=== PATIENT | female | born 1980 | race African-American/Black ===

== ENCOUNTER 2021-12-26 16:16 | Emergency (ER) | payer MEDICAID, SELFPAY ==
[2021-12-26 16:28] VITALS: BP 125/52; PULSE 87; RESP 18; TEMP 36.4; O2SAT 98; BMI 26.6
[2021-12-26] MEDS: Ondansetron ODT 4 MG TAB.RAPDIS TRANSLINGU (16:34)
[2021-12-26 17:04] LABS: Basophils Percent Auto 0.1 % (0-2); Eosinophils Percent Auto 0.1 % (0-4); Hematocrit 39.1 % (37.0-47.0); Hemoglobin 12.5 g/dl (12.0-16.0); Imm Gran Abs Auto 0.04 X10*3/uL (0.00-0.03); Imm Gran Pct Auto 0.3 % (0.0-0.4); Lymphocytes Absolute Auto 0.2 X10*3/uL (1.2-4.9); Lymphocytes Percent Auto 1.9 % (20-40); MANUAL DIFF FLAG SCAN; Mean Corpuscular Hemoglobin 27.1 pg (27.0-33.0); Mean Corpuscular Volume 84.6 fL (80.0-98.0); Mean Platelet Volume 8.9 fL (9.4-12.3); Monocytes Absolute Auto 0.4 X10*3/uL (0.1-1.2); Neutrophils Absolute Auto 10.9 x10*3/uL (2.0-8.3); Neutrophils Percent Auto 94.6 % (45-73); Platelet Count 352 X10*3/uL (160-400); Red Blood Count 4.62 X10*6/uL (4.20-5.50); Red Cell Distribution Width 15.6 % (11.0-16.0); SCAN SMEAR FLAG 1; White Blood Count 11.5 X10*3/uL (4.8-10.8)
[2021-12-26 17:06] LABS: Anion Gap 11 (12-20); Blood Urea Nitrogen 17 mg/dL (9-16); Carbon Dioxide 27 mmol/L (22-29); Chloride 103 mmol/L (96-108); Creatinine Clr Calc Pharmacy 101.2; Estimated Glomerular Filt Rate > 60; Glucose Random 99 mg/dL (60-115); Potassium 3.5 mmol/L (3.3-5.1); Sodium 137 mmol/L (135-145)
[2021-12-26 17:28] LABS: SLIDE REVIEW VERIFIED
== END 2021-12-26 19:07 | disposition left against medical advice (07) ==
PROVIDERS: Emergency Provider Emergency Medicine; PCP Nurse Practitioner Family
DX: M79.10 Myalgia, unspecified site (principal); R11.2 Nausea with vomiting, unspecified; Z79.899 Other long term (current) drug therapy
CPT/HCPCS: 36415; 80048; 85025; 99282; 99283

== ENCOUNTER 2022-10-05 08:45 | Outpatient (RCR) | payer OTHER, SELFPAY ==
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
[2022-09-23 14:45] LABS: Amphetamine Screen Urine Not Detected (Not Detect); Barbiturates, Urine Not Detected (Not Detect); Benzodiazepines Screen Urine Not Detected (Not Detect); Cannabinoid Screen Urine POSITIVE (Not Detect); Cocaine Screen Urine Not Detected (Not Detect); Fentanyl, urine Not Detected (Not Detect); Opiate Screen Urine Not Detected (Not Detect); Phencyclidine Screen Urine Not Detected (Not Detect)
--- NOTE | 2022-09-23 15:21 | HO.PHPIOP ---
Case opened in treatment team.
--- NOTE | 2022-09-27 12:34 | PC.ADMIT ---
Patient self referred to [facility] as her friend who has attended the program told her about the program. Patient was recently inpatient at [facility] after she stopped taking her prescription medications and reported becoming psychotic with telling her to kill herself. Patient reportedly overdosed on her prescription medications stating she was trying to kill herself. Patient went to [facility] and was subsequently transferred to [facility]. Patient reports she was using crack and ETOH prior to hospitalization. She reports being sober from ETOH and crack since 08/12/22. Stated she is not having any cravings and Naltrexone has been helpful. Stated she is not attending any outside recovery groups as she stated she has tried them in the past however would find someone from the group and use with them. Patient has a home health aid who helps support her in taking her medications daily and fills a pill organizer for her. She also helps her with bathing, house keeping, and food shopping. Patient reports history of Absence Seizures. Reports last seizure was 2 years ago. Stated she is prescribed Gabapentin for nephropathy only. Stated symptoms include inattentiveness/blank stare, shaking. Patient is alert and oriented x4. Calm and cooperative. Presented with depressed mood and anxious affect. Denied SI. Patient given a copy of her safety plan if needed. Medications reconciled with patient and patient's pharmacy. Reports taking medications as prescribed. Patient has a Abilify Mantaina injection due 09/27/22. Wants to work on early sobriety and mental health at [facility].
--- NOTE | 2022-09-27 14:57 | HO.PHPIOP ---
Pt informed staff that she would not be in program today, as she has an appt to get her IM Ability injection. She is expected to return to program tomorrow.
--- NOTE | 2022-09-28 10:57 | HO.PHPIOP ---
I called and spoke with pt after she did not show for the community meeting. She said she was trying to call but couldn't locate the number. I gave her the number for me and for Manju. She said she cannot attend today due to an appointment. She said she is okay and safe, and will be in PHP tomorrow.
--- NOTE | 2022-09-28 13:26 | PC.NURSE ---
I called Arianna and gave her information regarding a Life Teacher and asked her if she would like a referral. She stated she was not interested at this time however would let me know if she changed her mind.
--- NOTE | 2022-10-01 07:01 | HO.PHPPROGNO ---
Subjective Subjective Date of Service: 09/30/22 Reason For Visit: Schizoaffective d/o, ANAMIKA, PTSD Medical Problems Affecting Mental Status: No Interim History: Describes mood as ?stable ?. Received long-acting injectable Abilify on Tuesday. Continues with nightmares/terrors. No ETOH / substance use, has maintained abstinence. Finding program helpful. Medication Compliance: Yes Side effects from medications: No Attending Groups: Yes Review of Systems Acute medical concerns: No Medical Review of Systems: unchanged Review of Systems Review of Systems Yes all other systems are reviewed and are negative Constitutional: Reports no additional constitutional complaints Mental Status Exam Mental Status Exam Narrative: NAD. No SI/HI, has AH/VH at baseline. Patient Appearance: Well Grooomed and Appropriate Patient Orientation: Person, Place, Time and Situation Level of Consciousness: Awake and Appropriate Patient Behavior: Appropriate, Cooperative and Good Eye Contact Mood Description: Appropriate Affect Description: Depressed and Anxious Patient Cognition Impaired: No Ability to Follow Directions: Good Speech Pattern: Clear Memory Description: Intact Hallucinations: Auditory (not troublesome) and Visual (not troublesome) Delusions: Not Present Thought Process: Intact Thought Content: positive for Intact Depressive Symptoms: Difficulty Sleeping, Loss of Int. in Activity, Feelings of Guilt, Increased Fatigue, Low Self Esteem and Loss of Energy Judgement: Fair Assessment & Plan Assessment & Plan (1) Schizoaffective disorder, bipolar type: Status: Acute Code(s): F25.0 - Schizoaffective disorder, bipolar type Assessment and Plan: Patient feels more stable. Less anxious, less depressed. No SI, no safety concerns. Has chronic AH/VH, not troublesome at this time. Finding groups helpful. Received long-acting injectable Abilify on Tuesday, feels this is helping. No concerns. (2) Alcohol dependence, uncomplicated: Status: Acute Code(s): F10.20 - Alcohol dependence, uncomplicated Assessment and Plan: Has maintained abstinence from alcohol, denies cravings. (3) Cocaine dependence, uncomplicated: Status: Acute Code(s): F14.20 - Cocaine dependence, uncomplicated Assessment and Plan: Has maintained abstinence from cocaine, denies cravings. (4) Chronic post-traumatic stress disorder (PTSD): Status: Acute Code(s): F43.12 - Post-traumatic stress disorder, chronic Assessment and Plan: Continues with nightmares/terrors. Currently receives prazosin 5 mg. Discussed increasing dose to 6 mg. She was willing to trial this. Discussed parameters regarding blood pressure. She stated she understood. Plan 1. Continue with current [facility] plan of care. 2. Increase prazosin to 6 mg at bedtime. 3. Continue with other medications as currently prescribed. 4. Follow-up as per protocol. Patient educated on: diagnosis, medication risk/benefits, substance abuse and therapeutic strategies Informed Consent: understands Reason for contiued partial hosp. stay Substantial Risk for: inability to function and rapid decompensation Certification I certify that partial hospital treatment is medically necessary due to the symptoms and problems resulting from the patient's mental illness and the failure to treat the patient at the partial hospital level of care would likely result in the patient requiring inpatient psychiatric care which could not be prevented at a less intensive level of care. Total time managing care of this patient today __20__ minutes. Discharge Plan Discharge Attending provider: Rubio Abbasi Medications: New prazosin 1 mg capsule 1 mg PO BEDTIME Qty: 7 0RF Rx Instructions: Take in addition to prazosin 5mg, for total dose 6mg at bedtime. Hold for blood pressure below 90/60. No Action nicotine 14 mg/24 hr Patch 24 Hour 1 patch TRANSDERMAL DAILY naltrexone 50 mg Tablet 50 mg PO DAILY hydroxyzine pamoate 50 mg Capsule 50 mg PO Q4H PRN (Reason: Anxiety) prazosin 5 mg Capsule 5 mg PO BEDTIME gabapentin 800 mg Tablet 800 mg PO TID Abilify Maintena 400 mg Suspension,Extended Rel Recon 400 mg IM QMONTH
--- NOTE | 2022-10-05 10:16 | HO.PHPPROGNO ---
Subjective Subjective Date of Service: 10/05/22 Reason For Visit: Schizoaffective d/o, ANAMIKA, PTSD Medical Problems Affecting Mental Status: No Interim History: Describes mood as stable. States that she has some depression at times, but that it does not last throughout the day. Overall feels improved. No SI, no HI, no safety concerns. Continues to maintain abstinence from alcohol, no concerns. Did not utilize extra prazosin 1 mg, remains with 5 mg dose at bedtime. No cocaine use. Plans to attend [facility] 3 week program that starts this Tuesday, looking forward to this. Has found groups helpful. Feels stable for discharge from [facility] at this time. Medication Compliance: Yes Side effects from medications: No Attending Groups: Yes Review of Systems Acute medical concerns: No Medical Review of Systems: unchanged Review of Systems Review of Systems Yes all other systems are reviewed and are negative Constitutional: Reports no additional constitutional complaints Mental Status Exam Mental Status Exam Narrative: NAD. No SI/HI, has AH/VH at baseline. Patient Appearance: Well Grooomed and Appropriate Patient Orientation: Person, Place, Time and Situation Level of Consciousness: Awake, Appropriate and Alert Patient Behavior: Appropriate, Cooperative and Good Eye Contact Mood Description: Happy and Appropriate Affect Description: Calm and Appropriate Patient Cognition Impaired: No Ability to Follow Directions: Excellent Speech Pattern: Clear Memory Description: Intact Hallucinations: Auditory (not troublesome, baseline) and Visual (not troublesome, baseline) Delusions: Not Present Thought Process: Intact Thought Content: positive for Intact Judgement: Good Assessment & Plan Assessment & Plan (1) Schizoaffective disorder, bipolar type: Status: Acute Code(s): F25.0 - Schizoaffective disorder, bipolar type Assessment and Plan: Overall feels mood is more stable than when she began program. Taking all medications as prescribed. No SI/HI, no safety concerns. (2) Alcohol dependence, uncomplicated: Status: Acute Code(s): F10.20 - Alcohol dependence, uncomplicated Assessment and Plan: Continues abstinence, no concerns. Takes naltrexone daily. (3) Cocaine dependence, uncomplicated: Status: Acute Code(s): F14.20 - Cocaine dependence, uncomplicated Assessment and Plan: Remains free of cocaine use, no concerns. Denies any cravings. (4) Chronic post-traumatic stress disorder (PTSD): Status: Acute Code(s): F43.12 - Post-traumatic stress disorder, chronic Assessment and Plan: Has found program helpful. No overt PTSD symptoms today, although is aware that she deals with this on a regular basis. Current prazosin helping with nightmares. Plan 1. Patient appears stable for discharge from [facility] at this time. 2. Patient to follow-up with outpatient providers going forward. Patient educated on: diagnosis, medication risk/benefits, substance abuse and therapeutic strategies Informed Consent: understands Reason for contiued partial hosp. stay Substantial Risk for: stable for discharge Certification I certify that partial hospital treatment is medically necessary due to the symptoms and problems resulting from the patient's mental illness and the failure to treat the patient at the partial hospital level of care would likely result in the patient requiring inpatient psychiatric care which could not be prevented at a less intensive level of care. Total time managing care of this patient today ___20_ minutes. Discharge Plan Discharge Attending provider: Rubio Abbasi Medications: New prazosin 1 mg capsule 1 mg PO BEDTIME Qty: 7 0RF Rx Instructions: Take in addition to prazosin 5mg, for total dose 6mg at bedtime. Hold for blood pressure below 90/60. No Action nicotine 14 mg/24 hr Patch 24 Hour 1 patch TRANSDERMAL DAILY naltrexone 50 mg Tablet 50 mg PO DAILY hydroxyzine pamoate 50 mg Capsule 50 mg PO Q4H PRN (Reason: Anxiety) prazosin 5 mg Capsule 5 mg PO BEDTIME gabapentin 800 mg Tablet 800 mg PO TID Abilify Maintena 400 mg Suspension,Extended Rel Recon 400 mg IM QMONTH Stand Alone Forms: Patient Portal Discharge page Patient Education: Cocaine Abuse (DC), Schizoaffective Disorder (DC), Abuse of Alcohol (ED), Alcohol Use Disorder (DC)
== END 2022-10-05 23:59 | disposition home or self-care (01) ==
LOC: HO.PHPA 08:45
PROVIDERS: Visit Provider Psychiatry & Neurology Psychiatry
DX: F25.0 Schizoaffective disorder, bipolar type (principal); F43.12 Post-traumatic stress disorder, chronic; F10.20 Alcohol dependence, uncomplicated; F14.20 Cocaine dependence, uncomplicated; Z79.899 Other long term (current) drug therapy
CPT/HCPCS: 80307; 90791; 90853